=== PATIENT | female | born 2000 | race Caucasian/White ===

== ENCOUNTER 2018-07-10 00:36 | Emergency (ER) | payer OTHER ==
[~2018-07-10] VITALS: Ht 160 cm; Wt 78.0 kg
[2018-07-10] MEDS ORDERED: KETOROLAC 15MG/ML VIAL IM ONE (06:45)
[2018-07-10 07:00] VITALS: BP 120/82
== END 2018-07-10 07:03 | disposition home or self-care (01) ==
LOC: ER 00:36
DX: M79.671 Pain in right foot (principal); R03.0 Elevated blood-pressure reading, without diagnosis of hypertension
CPT/HCPCS: 81025; 96372; 99283; J1885

== ENCOUNTER 2021-06-02 11:10 | Emergency (ER) | payer MEDICAID, OTHER ==
[~2021-06-02] VITALS: Ht 157.5 cm; Wt 102.0 kg
[2021-06-02] MEDS ORDERED: ACETAMINOPHEN 325MG TABLET PO STA (11:41)
[2021-06-02 12:42] LABS: CLARITY URINE CLOUDY (CLEAR); COLOR URINE RED (YELLOW); KETONES URINE NEGATIVE (NEGATIVE); LEUKOCYTE ESTERASE URINE 1+ (NEGATIVE); NITRITE URINE NEGATIVE (NEGATIVE); OCCULT BLOOD URINE 3+ (NEGATIVE); PH URINE 6.5 (4.5-8.0); PROTEIN URINE 2+ (NEGATIVE); UROBILINOGEN URINE 0.2 E.U./dL (0.2-1.0)
[2021-06-02 13:39] LABS: BASOPHILS % 0.6 % (0.0-2.0); EOSINOPHILS % 2.7 % (0.0-5.0); HEMATOCRIT. 34.3 % (36.0-48.0); HEMOGLOBIN. 11.6 g/dL (12.0-16.0); LYMPHOCYTES % 31.6 % (20.0-50.0); MEAN CORPUSCULAR HEMOGLOBIN 27.4 pg (28.0-32.0); MEAN CORPUSCULAR VOLUME 81.3 fL (81.0-99.0); MEAN PLATELET VOLUME 10.1 fl (7.4-10.4); MONOCYTES % 3.7 % (2.0-8.0); NEUTROPHILS % 61.4 % (40.0-76.0); PLATELET 326 x1000/uL (130-400); RED BLOOD CELL COUNT 4.23 mill/uL (4.2-5.4); RED CELL DISTRIBUTION WIDTH 14.2 % (11.6-14.6)
[2021-06-02] MEDS ORDERED: MEDR10TA11 MT (13:52)
[2021-06-02 14:14] VITALS: BP 124/73
== END 2021-06-02 14:15 | disposition home or self-care (01) ==
LOC: ER 11:10
DX: N93.9 Abnormal uterine and vaginal bleeding, unspecified (principal); D64.9 Anemia, unspecified
CPT/HCPCS: 36415; 81003; 85025; 86850; 86900; 99283

== ENCOUNTER 2022-02-01 19:54 | Emergency (ER) | payer SELFPAY ==
[~2022-02-01] VITALS: Ht 154.9 cm; Wt 98.0 kg
[~2022-02-01 19:54] MED LIST: MEDR10TA11 MT
[2022-02-01 20:09] VITALS: BP 138/72
== END 2022-02-01 23:05 | disposition left against medical advice (07) ==
LOC: ER 19:54
DX: Z53.21 Procedure and treatment not carried out due to patient leaving prior to being seen by health care provider (principal)